=== PATIENT | male | born 1970 | race Caucasian/White ===

== ENCOUNTER 2018-05-22 15:09 | Emergency (ER) | payer OTHER ==
--- NOTE | 2018-05-22 15:44 | EDM.PDOC ---
ED HPI GENERAL MEDICAL PROBLEM - General Chief Complaint: ENT Problem Stated Complaint: ABSCESS ON GUM Time Seen by Provider: 05/22/18 15:34 - History of Present Illness INITIAL COMMENTS - FREE TEXT/NARRATIVE: 47-year-old male presents with a abscess on his upper gum. This is been present for the last couple days progressively getting worse. The patient does not have any tooth pain but he thinks he got a popcorn kernel stuck in his gum. He denies any fevers or chills however has quite a bit of facial pain developing. Treatments CARDIAC EXERCISE PHYSIOLOGIST: Reports: Other (see below) Other Treatments CARDIAC EXERCISE PHYSIOLOGIST: motrin Right Upper Tooth/Teeth Pain Score (Numeric/FACES): 2 - Related Data Allergies Allergy/AdvReac Type Severity Reaction Status Date / Time No Known Allergies Allergy Verified 05/22/18 15:32 Home Meds: Home Meds Acetaminophen/HYDROcodone [[place] 325-5 MG] 1 - 2 tab PO Q6H PRN #15 tablet 05/22 [Rx] Amoxicillin 500 mg PO Q8H #30 capsule 05/22/18 [Rx] Naproxen [Naprosyn] 500 mg PO Q12HR #30 tab 05/22/18 [Rx] Past Medical History - Past Health History Medical/Surgical History: Denies Medical/Surgical History ED ROS ENT - Review of Systems Review Of Systems: See Below HEENT: Reports: No Symptoms Respiratory: Reports: No Symptoms Cardiovascular: Reports: No Symptoms GI/Abdominal: Reports: No Symptoms ED EXAM, ENT - Physical Exam Exam: See Below Exam Limited By: No Limitations General Appearance: Alert, No Apparent Distress Mouth/Throat: Other (Patient has no tenderness along his teeth on the right lateral upper gum he has an abscess I'm uncertain if it's involving the teeth this is already draining with gentle massage it was completely drained. He felt better after this was not) Head: Atraumatic, Normocephalic Neck: Normal Inspection, Supple, Non-Tender, Full Range of Motion Respiratory/Chest: No Respiratory Distress, Lungs Clear, Normal Breath Sounds Cardiovascular: Regular Rate, Rhythm, No Edema, No Murmur Course - Vital Signs Last Recorded V/S: Last Vital Signs Temp 36.7 C 05/22/18 15:35 Pulse 93 05/22/18 15:35 Resp 20 05/22/18 15:35 BP 155/93 H 05/22/18 15:35 Pulse Ox 99 05/22/18 15:35 Departure - Departure Time of Disposition: 15:49 Disposition: Home, Self-Care 01 Clinical Impression: Abscess of upper gum - Discharge Information Prescriptions: Naproxen [Naprosyn] 500 mg PO Q12HR #30 tab Acetaminophen/HYDROcodone [[place] 325-5 MG] 1 - 2 tab PO Q6H PRN #15 tablet PRN Reason: Pain Amoxicillin 500 mg PO Q8H #30 capsule Referrals: PCP,None [Primary Care Provider] - Forms: ED Department Discharge Additional Instructions: Return to the emergency room with any questions problems worsening symptoms. Follow-up with your dentist early this next week. Take the medications as directed. Use warm moist heat to the area every couple hours while awake gently massage the area.
== END 2018-05-22 16:10 | disposition home or self-care (01) ==
LOC: JD.ED 15:09
DX: K05.219 Aggressive periodontitis, localized, unspecified severity (principal)
CPT/HCPCS: 99282; 99283